=== PATIENT | female | born 1945 | race Caucasian/White ===

== ENCOUNTER 2019-12-11 06:44 | Day surgery (SDC) | payer MEDICARE ==
[2019-12-07 10:49] LABS: EOSINOPHILS % (AUTO) 3.1 % (0.0-8.0); HEMATOCRIT 40.6 % (36-48); LYMPHOCYTES % (AUTO) 22.2 % (21.0-51.0); MEAN CORPUSCULAR HGB CONC 31.3 g/dL (32.0-36.0); MEAN CORPUSCULAR VOLUME 92.7 fL (79-99); MONOCYTES % (AUTO) 7.4 % (3.0-13.0); PLATELET COUNT (AUTO) 253 K/uL (130-400); RED BLOOD CELL COUNT(AUTO) 4.38 MIL/uL (4.00-5.50); RED CELL DISTRIBUTION WIDTH 12.5 % (11.0-15.5); WHITE BLOOD COUNT (AUTO) 6.9 K/uL (4.8-10.8)
[2019-12-07 10:53] VITALS: BP 139/64
[2019-12-07 11:02] LABS: POTASSIUM 4.6 mmol/L (3.5-5.1)
[2019-12-07 11:02] LABS: APPEARANCE,URINE CLOUDY (CLEAR); BILIRUBIN,URINE NEGATIVE (NEGATIVE); COLOR,URINE YELLOW (YELLOW); GLUCOSE, URINE (UA) NEGATIVE (NEGATIVE); KETONES,URINE NEGATIVE (NEGATIVE); LEUKOCYTE ESTERASE ,URINE LARGE (NEGATIVE); NITRATE,URINE POSITIVE (NEGATIVE); OCCULT BLOOD,URINE NEGATIVE (NEGATIVE); PROTEIN,URINE NEGATIVE (NEGATIVE)
[2019-12-07 11:04] LABS: INR 0.98 (0.85-1.15); PARTIAL THROMBOPLASTIN TIME 25.5 SEC (26.3-35.5); PROTHROMBIN TIME 10.3 SEC (9.6-11.6)
[2019-12-07 11:44] LABS: BACTERIA,URINE Many /HPF (None Seen); RBC,URINE 0-1 /HPF (0-1); SQUAMOUS EPITHELIAL CELL,UR 0-2 /HPF (0-2); WBC,URINE TNTC /HPF (0-1)
--- NOTE | 2019-12-10 13:12 | NUR ---
REPORTED ABNORMAL UA TO [facility], NO FURTHER ORDERS AT THIS TIME.
[~2019-12-11] VITALS: Ht 161.3 cm; Wt 90.3 kg
[2019-12-11] VITALS (12 sets, daily range): BP systolic 109–141; BP diastolic 41–51
[~2019-12-11 06:44] MED LIST: ACETAMINOPHEN 325 MG TAB PO PRN; AEC81 PO; ATEN25TA PO; CELE-84 PO; CHOL100046 PO; CITA-107 PO; FLUT12AE IH; FURO20TA4 PO; ISOS30TA6 PO; LEVO125T11 PO; LOSA50TA64 PO; MAGN400T40 PO; MULT-1250 PO; PANT40TA25 PO; ROSU10TA28 PO; SODIUM CHLORIDE 0.9% 500ML 500 ML IV SCH; VITAMIN B12 PO; [UNRECOGNIZED DRUG - OTHER] PO
[2019-12-11] MEDS ORDERED: SODIUM CHLORIDE 0.9% 1000ML 1,000 ML IV ONE (07:18)
[2019-12-11] MEDS ORDERED: IOHEXOL 350 MG/ML 100ML INFUS..BTL IV ONE ×2 (08:13→09:30)
[2019-12-11] MEDS ORDERED: NICARDIPINE HCL 25 MG/10 ML ML IV ONE (08:13)
[2019-12-11] MEDS ORDERED: NITROGLYCERIN 2 MG/VIAL VIAL IV ONE (08:13)
[2019-12-11] MEDS ORDERED: HEPARIN SODIUM 1000UNIT/ML 10ML VIAL ONE ×2 (08:13→09:30)
[2019-12-11] MEDS ORDERED: IOHEXOL-350 50ML VIAL IV ONE ×2 (08:13→09:30)
[2019-12-11] MEDS ORDERED: LIDOCAINE HCL 2% 20ML ONE ×2 (08:14→09:30)
[2019-12-11] MEDS ORDERED: ACYC400T PO (08:17)
[2019-12-11] MEDS ORDERED: MEPERIDINE-PF 25 MG/ML SYG ONE ×3 (08:19→10:05)
[2019-12-11] MEDS ORDERED: MIDAZOLAM HCL 1 MG/ML 2ML VIAL ONE ×3 (08:19→10:05)
[2019-12-11] MEDS ORDERED: SODIUM BICARB 50MEQ 50ML VIAL ONE ×2 (08:33→09:30)
[2019-12-11] MEDS ORDERED: LEVOFLOXACIN 500 MG/D5W 100 ML 100 ML IV SCH (08:45)
[2019-12-11 09:06] LABS: APPEARANCE,URINE Clear (CLEAR); BILIRUBIN,URINE Negative (NEGATIVE); COLOR,URINE Yellow (YELLOW); GLUCOSE, URINE (UA) Negative (NEGATIVE); KETONES,URINE Negative (NEGATIVE); LEUKOCYTE ESTERASE ,URINE Moderate (NEGATIVE); NITRATE,URINE Negative (NEGATIVE); OCCULT BLOOD,URINE Negative (NEGATIVE); PH,URINE 6.5 (5.0-8.0); PROTEIN,URINE Negative (NEGATIVE)
[2019-12-11 09:19] LABS: BACTERIA,URINE Many /HPF (None Seen); RBC,URINE 0-1 /HPF (0-1); SQUAMOUS EPITHELIAL CELL,UR Few /HPF (0-2)
[2019-12-11] MEDS ORDERED: NITROGLYCERIN 50 MG/D5% WATER 1 BOT ONE (09:32)
[2019-12-11] MEDS ORDERED: CLOPIDOGREL BISULFATE 300 MG TAB ONE (10:44)
[2019-12-11] MEDS ORDERED: SODIUM CHLORIDE 0.9% 1000ML 1,000 ML IV SCH (10:54)
[2019-12-11] MEDS ORDERED: ACETAMINOPHEN-CODEINE 300/30MG TAB PO PRN (11:00)
--- NOTE | 2019-12-11 17:30 | NUR ---
Pt discharged home, tolerating fluids/solids well, ambulating well, voiding well. Denies any pain, nausea or dizziness. Dressing to right radial remains dry, clean and intact, site soft s tenderness. Pt and spouse instructed in routine and emergency care of right radial cath site. Pt and spouse verbalized understanding. Prescriptions x 2 given to spouse. Pt instructed to stop taking Celecoxib. Pt states they did not receive a stent card. Pt provided with copy of the copy of the stent card that was in chart and instructed to ask Dr. Corea's office at follow-up appointment to see if they were to receive one. PT and spouse report no further questions at this time.
== END 2019-12-11 17:30 | disposition home or self-care (01) ==
LOC: DAH 06:44
PROVIDERS: ATTEND Internal Medicine Cardiovascular Disease
DX: I25.118 Atherosclerotic heart disease of native coronary artery with other forms of angina pectoris (principal); I10 Essential (primary) hypertension; E78.5 Hyperlipidemia, unspecified; J44.9 Chronic obstructive pulmonary disease, unspecified; E03.9 Hypothyroidism, unspecified; Z98.890 Other specified postprocedural states; Z79.82 Long term (current) use of aspirin; Z79.899 Other long term (current) drug therapy; Z87.891 Personal history of nicotine dependence; Z79.01 Long term (current) use of anticoagulants; Z72.89 Other problems related to lifestyle; Z82.49 Family history of ischemic heart disease and other diseases of the circulatory system; Z83.3 Family history of diabetes mellitus; Z82.3 Family history of stroke
CPT/HCPCS: 36415; 71045; 80048; 81001 ×2; 85025; 85610; 85730; 87077; 87088; 87186; 93005; 93458; A4215; A4216; A4221; A4222; A4223 ×3; A4606; A4663; C1769; C1874; C1887; C1894; C9600; J1644; J2175 ×2; J2250 ×2; J3490 ×4; J7030; Q9965; Q9967 ×2; 99156; 99157; J1956